=== PATIENT | male | born 1945 | race Caucasian/White ===

== ENCOUNTER 2016-11-26 10:22 | Inpatient (IN) | payer OTHER ==
--- NOTE | 2016-11-26 10:34 | EDPHY ---
H & P Time Seen by Provider: 11/26/16 10:33 HPI/ROS: CHIEF COMPLAINT: Trouble with speech HISTORY OF PRESENT ILLNESS: Patient arrives brought in by his boom operator. Apparently he was awake early today and had a telephone conversation at 8:00 a.m. which she knows is voice was normal. His partner noticed that he was having trouble speaking at 9:15 a.m. and he was brought to the emergency department. The patient says he is having trouble thinking of what to say and also getting the words out. He says he is not sure what time the symptoms started but definitely were not present at 8:00 a.m.. Not associated with headache or double vision. No weakness or numbness in extremities. No difficulty walking or vertigo or ataxia. REVIEW OF SYSTEMS: Eye: no change in vision ENT: no sore throat Cardiac: no chest pain or syncope Pulmonary: no cough or SOB Abdomen: no vomiting, diarrhea, abdominal pain Musculoskeletal: no back pain Skin: no rash Neuro: no headache Constitutional: no fever : no urinary symptoms A comprehensive 10 point review of systems is otherwise negative aside from elements mentioned in the history of present illness. PAST MEDICAL HISTORY: Hypertension, history of dysphonia. Social history: Here with his girlfriend. Nonsmoker. Occasional alcohol. General Appearance: Alert and conversant, cooperative. Eyes: No scleral icterus. No tongue laceration or abrasion. ENT, Mouth: Normal mucous membranes. Respiratory: Normal respiratory effort, breath sounds equal, lungs are clear to auscultation. Cardiovascular: Regular rate and rhythm. Gastrointestinal: Abdomen is soft and non tender. Neurological: Alert and oriented x3. Speech is halting and somewhat slurred. Right facial droop, otherwise normal movement and sensation in extremities. Skin: Warm and dry, no rashes. Musculoskeletal: No peripheral edema and no joint swelling. Psychiatric: Not agitated. Emergency Department course/MDM: Patient was immediately made a stroke activation. 1047: Returns from CT and [facility] is examining the patient. Dr. Ferraro via telemedicine. 1051: Negative noncontrast head CT per Stacey. 1052: Decision to administer IV Activase at the recommendation of the tax credit leasing consultant neurologist from [facility]. Risk benefit and alternatives discussed with the patient by neurologist via telemedicine and consented. Treatment started less than 3 hours after last known normal of 8:00 a.m. Blood pressure 177/85 at this time. Patient receives NIH points for language, dysarthria, and facial droop on the right. Re-examined 1118. Angiography results discussed. No headache. Activase is infused. Smoking Status: Never smoked Constitutional: Initial Vital Signs Temperature (C) 36.4 C 11/26/16 10:26 Heart Rate 66 11/26/16 10:26 Respiratory Rate 16 11/26/16 10:26 Blood Pressure 167/111 H 11/26/16 10:26 O2 Sat (%) 98 11/26/16 10:26 O2 Delivery Mode Room Air O2 (L/minute) 2 Allergies/Adverse Reactions: No Known Allergies Allergy (Unverified 11/26/16 10:26) Home Medications: Medication Instructions Recorded Chlorthalidone [Chlorthalidone 25 25 mg PO DAILY 11/26/16 mg (*)] Naproxen Sodium [Aleve 220 MG (*)] 220 mg PO BID PRN 11/26/16 Medical Decision Making - Diagnostics EKG Interpretation: 12-lead EKG interpreted by me; official reading is in trace master. My interpretation is sinus rhythm with left axis and late anterior RS transition Imaging Results: Imaging Impressions Head CT 11/26/16 10:34 Impression: 1. No acute intracranial findings. 2. Diffuse cerebral atrophy with periventricular and subcortical low attenuation consistent with chronic microvascular ischemic gliosis. Findings discussed with JOHN JAVIER 11/26/2016 at 1049. Chest X-Ray 11/26/16 10:40 Impression: Possible mild cardiomegaly. Consider obtaining a routine PA and lateral chest, the patient is clinically able. Head CTA 11/26/16 10:56 Impression: 1. No acute vascular findings. 2. 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 3. Degenerative change in the cervical spine. 4. Additional findings as above. Stenoses are calculated using [place] Symptomatic Carotid Endarterectomy Trial (NASCET) criteria. Neck CTA 11/26/16 10:56 Impression: 1. No acute vascular findings. 2. 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 3. Degenerative change in the cervical spine. 4. Additional findings as above. Stenoses are calculated using [place] Symptomatic Carotid Endarterectomy Trial (NASCET) criteria. Differential Diagnosis: Differential considered including but not limited to ischemic stroke, intracranial mass, intracranial bleed, Perez's palsy. Consult/Admit Bed Type: [facility] 1042, [facility] for Clement 1058 Critical Care Time: Critical care time spent by me, Dr. Javier, exclusively with the care of this patient was 45 minutes, exclusive of PA or ELECTRONIC COMMUNICATIONS TECHNICIAN time and exclusive of separate procedures. The organ system at risk was neurologic and I ordered intravenous Activase, consultation with hospitalist and [facility]; to stabilize the patient and prevent worsening of the patient's condition. - Data Points Laboratory Results: Laboratory Results 11/26/16 10:37 11/26/16 10:37 11/26/16 11/26/16 11/26/16 10:37 10:37 10:37 WBC 5.02 10^3/uL 10^3/uL (3.80-9.50) RBC 5.74 10^6/uL 10^6/uL (4.40-6.38) Hgb 17.5 g/dL g/dL (13.7-17.5) POC Hgb Hct 51.5 % H % (40.0-51.0) POC Hct MCV 89.7 fL fL (81.5-99.8) MCH 30.5 pg pg (27.9-34.1) MCHC 34.0 g/dL g/dL (32.4-36.7) RDW 13.8 % % (11.5-15.2) Plt Count 187 10^3/uL 10^3/uL (150-400) MPV 9.8 fL fL (8.7-11.7) Neut % (Auto) 41.0 % % (39.3-74.2) Lymph % (Auto) 41.0 % % (15.0-45.0) Willacy % (Auto) 10.6 % % (4.5-13.0) Eos % (Auto) 6.0 % % (0.6-7.6) Baso % (Auto) 1.2 % % (0.3-1.7) Nucleat RBC Rel Count 0.0 % % (0.0-0.2) Absolute Neuts (auto) 2.06 10^3/uL 10^3/uL (1.70-6.50) Absolute Lymphs (auto) 2.06 10^3/uL 10^3/uL (1.00-3.00) Absolute Monos (auto) 0.53 10^3/uL 10^3/uL (0.30-0.80) Absolute Eos (auto) 0.30 10^3/uL 10^3/uL (0.03-0.40) Absolute Basos (auto) 0.06 10^3/uL 10^3/uL (0.02-0.10) Absolute Nucleated RBC 0.00 10^3/uL 10^3/uL (0-0.01) Immature Gran % 0.2 % % (0.0-1.1) Immature Gran # 0.01 10^3/uL 10^3/uL (0.00-0.10) PT 12.8 SEC SEC (12.0-15.0) INR 0.97 (0.83-1.16) POC Sodium Sodium 142 mEq/L mEq/L (134-144) POC Potassium Potassium 4.0 mEq/L mEq/L (3.5-5.2) POC Chloride Chloride 104 mEq/L mEq/L (97-110) Carbon Dioxide 27 mEq/l mEq/l (22-31) Anion Gap 11 mEq/L mEq/L (8-16) POC BUN BUN 25 mg/dL H mg/dL (7-23) Creatinine 1.3 mg/dL mg/dL (0.7-1.3) POC Creatinine Estimated GFR 55 Glucose 93 mg/dL mg/dL (70-100) POC Glucose Calcium 9.3 mg/dL mg/dL (8.5-10.4) Troponin I < 0.012 ng/mL ng/mL (0-0.034) 11/26/16 10:34 WBC RBC Hgb POC Hgb 18.0 gm/dL H gm/dL (13.7-17.5) Hct POC Hct 53 % H % (40-51) MCV MCH MCHC RDW Plt Count MPV Neut % (Auto) Lymph % (Auto) Willacy % (Auto) Eos % (Auto) Baso % (Auto) Nucleat RBC Rel Count Absolute Neuts (auto) Absolute Lymphs (auto) Absolute Monos (auto) Absolute Eos (auto) Absolute Basos (auto) Absolute Nucleated RBC Immature Gran % Immature Gran # PT INR POC Sodium 144 mEq/L mEq/L (134-144) Sodium POC Potassium 3.6 mEq/L mEq/L (3.3-5.0) Potassium POC Chloride 102 mEq/L mEq/L (97-110) Chloride Carbon Dioxide Anion Gap POC BUN 26 mg/dL H mg/dL (7-23) BUN Creatinine POC Creatinine 1.4 mg/dL H mg/dL (0.7-1.3) Estimated GFR Glucose POC Glucose 97 mg/dL mg/dL (70-100) Calcium Troponin I Medications Given: Discontinued Medications Alteplase, Recombinant (Activase) 6.525 mg 0.09 mg/kg (6.525 mg) IV ONCE ONE PRN Reason: Protocol Stop: 11/26/16 11:39 Last Admin: 11/26/16 10:52 Dose: 6.525 mg Alteplase, Recombinant (Activase) 58.725 mg 0.81 mg/kg (58.725 mg) IV ONCE ONE PRN Reason: Protocol Stop: 11/26/16 11:39 Last Admin: 11/26/16 10:55 Dose: 58.725 mg Sodium Chloride (Ns) 50 mls @ 0 mls/hr IV EDNOW ONE PRN Reason: Per Protocol Stop: 11/26/16 11:39 Last Admin: 11/26/16 11:46 Dose: 50 mls Point of Care Test Results: 11/26/16 10:34 POC Sodium 144 POC Potassium 3.6 POC Chloride 102 POC BUN 26 H POC Creatinine 1.4 H POC Glucose 97 Departure - Departure Disposition: [facility] Inpatient Acute Clinical Impression: Acute ischemic stroke Condition: Serious
[2016-11-26] MEDS ORDERED: ALTEPLASE 100 MG/100 ML VIAL IV ONE ×2 (10:38→11:38)
[2016-11-26] MEDS ORDERED: NS 50 ML BAG IV ONE (10:50)
[2016-11-26 10:54] LABS: % IMMATURE GRANULYOCYTES 0.2 % (0.0-1.1); ABSOLUTE IMMATURE GRANULOCYTES 0.01 10^3/uL (0.00-0.10); ADD DIFF? NO; ADD MORPH? NO; ADD SCAN? NO; ATYPICAL LYMPHOCYTE FLAG 10 (0-99); FRAGMENT RBC FLAG 0 (0-99); HEMATOCRIT 51.5 % (40.0-51.0); HEMOGLOBIN 17.5 g/dL (13.7-17.5); LEFT SHIFT FLG 0 (0-99); LIPEMIA HEMOLYSIS FLAG 90 (0-99); MEAN CELL HEMOGLOBIN 30.5 pg (27.9-34.1); MEAN CELL VOLUME 89.7 fL (81.5-99.8); MEAN PLATELET VOLUME 9.8 fL (8.7-11.7); PLATELET CLUMPS FLAG 10 (0-99); PLATELET COUNT 187 10^3/uL (150-400); RED BLOOD CELL COUNT 5.74 10^6/uL (4.40-6.38); RED CELL DISTRIBUTION WIDTH 13.8 % (11.5-15.2)
[2016-11-26] MEDS ORDERED: IOPAMIDOL (ISOVUE 370) 100 ML BTL IV ONE (10:57)
--- NOTE | 2016-11-26 11:03 | CPEKG ---
Heart Rate: 71 RR Interval: 845 P-R Interval: 184 QRSD Interval: 104 QT Interval: 424 QTC Interval: 461 P Hiland: 68 QRS Hiland: -21 T Wave Hiland: 39 EKG Severity - ABNORMAL ECG - EKG Impression: SINUS RHYTHM EKG Impression: BORDERLINE LEFT AXIS DEVIATION EKG Impression: ABNRM R PROG, CONSIDER ASMI OR LEAD PLACEMENT Electronically Signed By: Christiano Wall 26-Nov-2016 11:24:41
[2016-11-26 11:33] LABS: ANION GAP 11 mEq/L (8-16); CALCIUM 9.3 mg/dL (8.5-10.4); CARBON DIOXIDE 27 mEq/l (22-31); CHLORIDE 104 mEq/L (97-110); CREATININE 1.3 mg/dL (0.7-1.3); GLOMERULAR FILTRATION RATE 55; GLUCOSE 93 mg/dL (70-100); SODIUM 142 mEq/L (134-144)
[2016-11-26] MEDS ORDERED: NS 50 ML IV ONE (11:38)
[2016-11-26] MEDS ORDERED: ALTEPLASE 1 MG/ML SYR IV ONE (11:38)
[2016-11-26 11:45] LABS: TROPONIN I < 0.012 ng/mL (0-0.034)
[2016-11-26] MEDS ORDERED: ONDANSETRON 4 MG/2 ML VIAL IVP PRN (12:52)
[2016-11-26] MEDS ORDERED: ACETAMINOPHEN 325 MG TAB PO PRN (12:52)
[2016-11-26] MEDS ORDERED: ONDANSETRON DISINTEGRATING 4 MG TAB PO PRN (12:52)
[2016-11-26 13:27] LABS: INR 0.97 (0.83-1.16); PROTIME(PATIENT) 12.8 SEC (12.0-15.0)
--- NOTE | 2016-11-26 14:09 | GHP ---
[f rep st] HISTORY AND PHYSICAL DATE OF ADMISSION: 11/26/2016 HISTORY OF PRESENT ILLNESS: The patient is a pleasant 71-year-old gentleman, with history of hypert ension and dysphonia, who presents today with sudden onset aphasia. It sounds like he was trying to speak and think of the words but he just could not get them out, he was making noise. It sounds li ke he had a phone call around 8 o'clock, that was the last he is remembered normal and his partner s aw him a little bit thereafter. Presented to the emergency department and received IV tPA at 2 hour s and 55 minutes approximately since the onset of symptoms. Currently, when I speak with him he is able to converse. He is able to name objects and speak. He is not complaining of any numbness or w eakness anywhere. Does not have a headache. Regarding stroke risk factors, he has high blood pressure for which he takes chlorthalidone. He den ies cigarette use. He does not have a history of hyperlipidemia or diabetes of which he knows. The re is a family history of vascular disease. His girlfriend is present at the bedside, and she belie ves his speech is essentially back to normal. He sometimes has dysarthria type symptoms when he get s Botox injections for his dysphonia, though he has had no recent Botox injections and these symptom s are different than what he has had in the past. REVIEW OF SYSTEMS: Complete 10-point review of systems conducted, and negative except as noted in t he HPI. PAST MEDICAL HISTORY: Hypertension, dysphonia. ALLERGIES: No known drug allergies. MEDICATIONS: Chlorthalidone and naproxen. SOCIAL HISTORY: Is retired from [employer]. Lives in [place] with his girlfriend. Occasional alcoho l, no tobacco. PHYSICAL EXAM: VITAL SIGNS: Temp 36.7, blood pressure 168/94, pulse 73, breathing 18 times a minut e, 100% on 2 L. GENERAL: No acute distress. HEENT: Sclerae anicteric. Oropharynx clear. Mucous membranes moist. NECK: Supple. No lymphadenopathy or JVD. LUNGS: Clear to auscultation bilater ally. HEART: S1, S2 without murmurs. ABDOMEN: Soft, nontender, nondistended. LOWER EXTREMITIES: No edema. Calves nontender. SKIN: Without rash. NEUROLOGIC: Shows upper extremity strength an d lower extremity strength 5/5 bilaterally. Sensation in his upper and lower extremities is 5/5 howie aterally. He has no facial droop. Cranial nerves 2-12 are intact. Speech is fluent. He is able t o name objects and follow commands. Cerebellar testing was symmetric, slightly slow bilaterally. IMAGING: EKG interpreted by id, shows sinus at 71 with borderline left axis deviation, normal inter vals, no ST or T-wave changes. There is no prior for comparison. A chest x-ray interpreted by me, shows no acute cardiopulmonary disease, normal heart size. Noncontrast head CT, shows no acute intr acranial findings, diffuse cerebral atrophy with periventricular and subcortical low attenuation con sistent with chronic microvascular ischemic gliosis. 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 It seems like there is no significant evidence of flow limiting stenoses. I have discussed the case with Dr. Mikhail Vallecillo as well as Dr. Montez Saldaña. ASSESSMENT/PLAN: This is a 71-year-old male who presents with dysarthria, concerning for acute cere brovascular accident, now status post lytics. 1. Status post lytics. The patient's blood pressure is 140/80 without medication. We will continu e his chlorthalidone p.r.n. as would be available. His goal blood pressure is less than 140. 2. Cerebrovascular accident. This is likely a cerebrovascular accident versus transient ischemic a ttack with classic symptoms of dysarthria. I have ordered an echocardiogram, A1c, lipid panel. I w ill follow him on telemetry for occult atrial fibrillation. The patient warrants an aspirin therapy that will start tomorrow. 3. Hypertension. Continue his chlorthalidone. 4. Dysphonia. Will follow. Speech will see him. 5. Prophylaxis. Pharmacologic prophylaxis indicated. We will start with SCDs today given that he has received IV tPA. ADMISSION STATUS: Inpatient. /[id number]/MODL
--- NOTE | 2016-11-26 14:29 | GCON ---
[f rep st] CONSULTATION NEUROLOGY CONSULTATION REFERRING PHYSICIAN: Jairo Vaughan MD HISTORY: The patient is a 71-year-old gentleman whom I am asked to see in neurologic consultation for a chief complaint of trouble with verbal expression. The patient was at home when he developed the acute onset of inability to express himself around 10 a.m. He came to the emergency room as an acute stroke alert and was assessed as having some impaired speech and possible facial droop on the right and received IV tPA within 30 minutes. Language has probably gone back to about baseline or at least 90%, confirmed by his . He specifically said he knew what he wanted to say, but the words just would not come out. He just made sounds and grunts rather than a slurring of speech. 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 He has received Botox treatments before, with his last treatment about 4 months ago. He has never had a history of stroke or TIA. After receiving the treatment in the emergency department, he has been transferred to the ICU for monitoring. He had a head CT showing evidence of microvascular disease, but nothing else more specific. CT angiogram of the head and neck did not show any significant stenoses. PAST MEDICAL HISTORY: Predominantly as outlined above. There is a history of mild hypertension and the essential tremor. HABITS: He has very light alcohol use. No substance abuse. No smoking history. MEDICATIONS: Medication prior to admission was chlorthalidone. ALLERGIES: No known drug allergies. REVIEW OF SYSTEMS: Unremarkable, except for that noted above. PHYSICAL EXAMINATION: VITAL SIGNS: Blood pressure is 147/81, pulse of 65, respirations 10, temperature 36.7. GENERAL: He is well developed, in no acute distress. EYES: Clear. CARDIAC: Regular rate and rhythm. No murmur. No carotid bruits. NEUROLOGIC: NIH stroke scale of 1. He is awake, alert and attentive, with mild dysphonic speech related to spasmodic dysphonia, but he is not having expressive language problems currently at least by the evaluation through our discussions. He is oriented fully. He has mild right lower facial weakness. Motor exam: Normal muscle bulk and tone, 5/5 strength with just mild tremulousness on [id number]. Sensation preserved. Reflexes 1+. IMPRESSION: The patient has experienced a probable acute ischemic stroke in the left middle cerebral artery territory. Whether it is a local thrombosis or an embolic phenomenon is not clear yet. There were no clear-cut lesions in the CT angiogram of the head and neck. We will have echocardiogram obtained. He will stay in the ICU for 24 hours and monitor it with a head CT in approximately 24 hours, and then plan antiplatelet therapy and consideration of statin therapy as well. Physical, occupational, and speech therapy consult will be obtained. Total unit time: 55 minutes. /[id number]/MODL MTDD
[2016-11-27 05:39] LABS: % IMMATURE GRANULYOCYTES 0.2 % (0.0-1.1); ABSOLUTE IMMATURE GRANULOCYTES 0.01 10^3/uL (0.00-0.10); ADD DIFF? NO; ADD MORPH? NO; ADD SCAN? NO; ATYPICAL LYMPHOCYTE FLAG 10 (0-99); FRAGMENT RBC FLAG 0 (0-99); HEMATOCRIT 48.8 % (40.0-51.0); HEMOGLOBIN 16.8 g/dL (13.7-17.5); LEFT SHIFT FLG 0 (0-99); LIPEMIA HEMOLYSIS FLAG 90 (0-99); MEAN CELL HEMOGLOBIN 30.6 pg (27.9-34.1); MEAN CELL HEMOGLOBIN CONCENTR. 34.4 g/dL (32.4-36.7); MEAN CELL VOLUME 88.9 fL (81.5-99.8); MEAN PLATELET VOLUME 10.3 fL (8.7-11.7); PLATELET CLUMPS FLAG 10 (0-99); PLATELET COUNT 173 10^3/uL (150-400); RED BLOOD CELL COUNT 5.49 10^6/uL (4.40-6.38); RED CELL DISTRIBUTION WIDTH 13.6 % (11.5-15.2)
[2016-11-27 05:47] LABS: INR 1.09 (0.83-1.16)
[2016-11-27 05:56] LABS: CHOLESTEROL 181 mg/dL (140-220); CHOLESTEROL/HDL RATIO 3.62 RATIO (1.00-4.97); HIGH DENSITY LIPOPROTEIN 50 mg/dL (40-65); LDL/HDL RATIO 2.28 RATIO (1.00-3.64); LOW DENSITY LIPOPROTEIN 114 mg/dL (80-100); NON-HIGH DENSITY LIPOPROTEIN 131 mg/dL (90-129); TRIGLYCERIDE 86 mg/dL (40-150); VERY LOW DENSITY LIPOPROTEINS 17 mg/dL (8-25)
--- NOTE | 2016-11-27 08:34 | NEUROPROG ---
Assessment: Total unit time today of 25 minutes. The patient has experienced a small stroke or TIA and received tPA with resolution of deficits. Echocardiogram is pending. He will start on aspirin if the head CT shows no hemorrhage 24 hours after the infusion and should be able to be discharged today if cleared by therapy. I would recommend he start statin therapy for secondary stroke prophylaxis in addition to the daily aspirin. He would then follow up with me as an outpatient in approximately 1 month as well as with his primary care doctor. Subjective: The patient is reporting that he feels back to his baseline now. No recurrence of symptoms and no new complaints since admission. It has been approximately 22 hours since receiving tPA. Objective: Vital Signs Temp Pulse Resp BP Pulse Ox 36.5 C 70 16 120/77 94 11/27/16 08:00 11/27/16 08:00 11/27/16 08:00 11/27/16 08:00 11/27/16 08:00 Laboratory Results 11/27/16 01:20 11/26/16 11/27/16 11/28/16 05:59 05:59 05:59 Intake Total 750 Balance 750 PT 14.0 SEC (12.0-15.0) 11/27/16 01:20 INR 1.09 (0.83-1.16) 11/27/16 01:20 Alert and attentive with NIH stroke scale of 0 now. The LDL cholesterol is 113. Allergies/Adverse Reactions: No Known Allergies Allergy (Unverified 11/26/16 10:26)
[2016-11-27] MEDS ORDERED: ASPIRIN 81 MG CHEWABLE TAB PO SCH ×2 (09:00→12:00)
[2016-11-27] MEDS ORDERED: CHLORTHALIDONE 25 MG TAB PO SCH (09:00)
[2016-11-27] MEDS ORDERED: ATORVASTATIN CALCIUM 40 MG TAB PO SCH (09:00)
[2016-11-27 09:48] LABS: HEMOGLOBIN A1C 5.3 % (4.0-6.0)
[2016-11-27 12:11] VITALS: TEMP 98.4
--- NOTE | 2016-11-27 14:12 | ECHO ---
[id number] + + [address] : : [place] [address] : : [phone] + Adult Echocardiographic Report + ------+ :Name: JULIET BERNSTEIN RStudy Date: 11/26/2016 01:55 PM : : Hospital Admission Number: [id number] Locatio n: 254: :: 1945 Gender: Male Height: 69 in : :Age: 71 yrs Race: WH Weight: 159 lb : :Reason For Study: Eval LV Fx : : BSA: 1.9 meters 2 : :History: CVA : + ------+ MMode/2D Measurements \T\ Calculations IVSd: 0.87 cm LVIDd: 4.0 cm FS: 38.6 % Ao root diam: 3.3 cm LVPWd: 0.98 cm LVIDs: 2.5 cm EDV(Teich): 71.2 ml ACS: 1.7 cm ESV(Teich): 21.7 ml EF(Teich): 69.5 % Normal Measurement Values: + + :LVIDd (3.5-5.7cm) IVSd (0.6-1.1cm) LVPWd (0.6-1.1cm) Aortic Root (2.0-3.7cm)Left Atrium (1.5-4.0cm): :LV Vol(d) (76-115ml) LV Vol(s) (29-48ml) Ejec Fraction (50-65%)PV Trevor (0.6- 1.2m/s) TV Trevor (0.4-1.0m/s) : :MV E Trevor (0.8-1.0m/s)MV A Trevor (0.3-1.0m/s)LVOT Trevor (0.7-1.2m/s) Asc Ao Trevor ( 0.9-1.8m/s) : + + Doppler Measurements \T\ Calculations MV E max trevor: Ao V2 max: LV V1 max: PA V2 max: 51.3 cm/sec 124.9 cm/sec 78.5 cm/sec 80.1 cm/sec MV A max trevor: Ao max P.2 mmHg LV V1 max PG: PA max P.2 cm/sec 2.5 mmHg 2.6 mmHg MV E/A: 0.80 Left Ventricle The left ventricle is normal in size. There is normal left ventricular wall thickness. The left ventricular ejection fraction is normal. There is Doppler evidence for diastolic dysfunction. Ejection Fraction = 70%. The left ventricular wall motion is normal. Right Ventricle The right ventricle is normal in size and function. Atria The left atrial size is normal. Right atrial size is normal. Mitral Valve The mitral valve is normal in structure and function. There is no mitral regurgitation noted. Tricuspid Valve Normal tricuspid valve. No tricuspid regurgitation. Aortic Valve The aortic valve is normal in structure and function. The aortic valve is trileaflet. There is no aortic stenosis. There is no aortic insufficiency. Pulmonic Valve The pulmonic valve is not well visualized. There is no pulmonic valvular regurgitation. Great Vessels The aortic root is normal size. Pericardium/Pleural There is no pericardial effusion. There is a fat pad seen. Conclusion A complete two-dimensional transthoracic echocardiogram was performed (2D, M-mode, Doppler and color flow Doppler). (1) Left ventricular systolic ejection fraction was normal (70%) - normal wall motion (2) No left ventricular hypertrophy (3) Diastolic dysfunction was present (4) Normal right ventricular size and function (5) Normal atrial dimensions (6) Grossly normal mitral valve (7) Trileaflet aortic valve without sclerosis or appreciable insufficiency (8) Grossly normal tricuspid valve (9) Poor visualization of the pulmonic valve (10) No comparison echocardiograms Final Reading Physician: Jeannine Camacho signed on 11/27/2016 02:11 PM Ordering Physician: Jairo Vaughan Performed By: Agus Healy, CS
[2016-11-27 14:39] VITALS: BP 123/70; PULSE 71; RESP 16; O2SAT 94
--- NOTE | 2016-11-27 15:48 | GDS ---
[f rep st] DISCHARGE SUMMARY DISCHARGE DIAGNOSES: 1. Cerebrovascular accident, status post lytics. 2. Hypertension. 3. Spasmodic dysphonia. CONSULTANTS: Montez Saldaña MD, Neurology. IMAGING STUDIES/PROCEDURES: 1. Head CT, November 26, 2016, showed no acute intracranial findings. There was diffuse cerebral atroph y with periventricular and subcortical low attenuation consistent with chronic microvascular ischemi c gliosis. 2. Head and neck CT angiography showed no acute vascular findings, a probable venous anomaly in the left temporal lobe. No evidence of large vessel occlusions. 3. Repeat head CT, November 27, 2016 status post lytics, was again negative for acute intracranial hemor rhage or evolving cortical ischemia. 4. Echocardiogram November 26, 2016, showed normal left ventricular ejection fraction of 70% with normal wall motion. Diastolic dysfunction was present. No significant valve disease. HISTORY: For details please see the history and physical dated November 26, 2016. In brief, the patient was a 71-year-old male with a history of hypertension and dysphonia who presents to the emergency d [facility] with sudden onset aphasia. He was treated with lytic therapy and admitted to the intensiv e care unit for further management. HOSPITAL COURSE: Upon arrival to the emergency department with acute neuro deficits, [facility] was consulted and lytic therapy was recommended in the setting of dysarthria and right facial d gemma. His symptoms have completely resolved 24 hour post lytics. Repeat head CT is negative for he morrhage. There has been no ongoing evidence of ischemia. Neurology consult was obtained. He was started on aspirin after confirmation of a normal head CT 24 hours post lytics. Statin therapy was also initiated. It is likely he had an acute ischemic stroke in the left MCA distribution based on his presenting symptoms of aphasia and right-sided facial droop. There is no evidence of a cardioem bolic source. His bilateral carotid arteries and vertebral arteries were widely patent on CT angiog frida. He did well with physical therapy and Neurology felt he was stable for discharge home today. I recommended he have an outpatient 30-day cardiac event monitor to continue to look for atrial fibr illation as a source of embolic CVA. DISPOSITION: Patient is discharged home in stable condition. FOLLOWUP: 1. Dr. Clements, primary care. 2. Dr. João Brown [facility]. The patient is advised [facility] will contact him to set up a 30-day cardiac event monitor. DISCHARGE MEDICATIONS: 1. Aspirin 81 mg p.o. daily #30, no refills. 2. Atorvastatin 40 mg p.o. daily #30, no refills. /[id number]/MODL
== END 2016-11-27 15:17 | disposition home or self-care (01) | DRG 63 ==
LOC: F2N 12:09
PROVIDERS: ADMIT Internal Medicine; ATTEND Internal Medicine
DX: I63.519 Cerebral infarction due to unspecified occlusion or stenosis of unspecified middle cerebral artery (principal); J38.3 Other diseases of vocal cords; I10 Essential (primary) hypertension
CPT/HCPCS: 82947-QW; 92523-GN; 92610-GN; 97161-GP; G8978-GP-CH; G8979-GP-CH; G8980-GP-CH; G8996-GN-CH; G8997-GN-CH; G9162-GN-CH; G9163-GN-CH; G9164-GN-CH; J2997; Q9967

== ENCOUNTER → 2017-06-19 | Outpatient (CLI) | payer OTHER ==
[~2017-06-19] MED LIST: GADOBUTROL 10 ML VIAL IVP ONE
== END ==
LOC: FIMAGING 16:08
PROVIDERS: ATTEND Physician Assistant
DX: R93.0 Abnormal findings on diagnostic imaging of skull and head, not elsewhere classified (principal); G94 Other disorders of brain in diseases classified elsewhere
CPT/HCPCS: 70553; A9585

== ENCOUNTER 2017-09-06 07:33 | Day surgery (SDC) | payer OTHER ==
[2017-09-06] MEDS ORDERED: LIDOCAINE 1% 300 MG/30 ML SDV SC ONE (07:37)
--- NOTE | 2017-09-06 08:41 | PDGENHP ---
History & Physical Chief Complaint: Cryptogenic stroke History of Present Illness: Patient is a 72 y/o male with HTN and cryptogenic stroke without arrhythmias noted on cardionet monitor. No new complaints have been voiced. No cardiovascular complaints today. Pertinent Past, Social, Family History: [place] history to the family. Non smoker. Social drinker. No illicits Relevant Physical Exam: Normal sinus rhythm. Clear lung sounds. No edema Cardiorespiratory Assessment: RRR without m/r/g. Normal S1S2 no S3. Lungs CTA bilaterally. No LE edema.
--- NOTE | 2017-09-06 09:00 | SUROPNOTE ---
[facility] Operative Report - Surgery After consent for the procedure was signed, the patient was prepped and draped in the usual sterile fashion. Lidocaine was injected into the left para sternal region at the level of 2nd and 3rd ICS. A small incision was made with #12 blade and the provided blade was then used to make proper width and breath. The delivery rail with device was inserted into the incision without difficulty. The device was then deployed without difficulty. [employer] SN: [id number] Four vonnie were used to close the incision. No sedation provided. Patient to be seen in the outpatient setting in 5-7 days for wound check and staple removal. No complications
== END 2017-09-06 09:11 | disposition home or self-care (01) ==
LOC: FCATH 07:33
PROVIDERS: ATTEND Internal Medicine Cardiovascular Disease
PROC: 0JH602Z Insertion of Monitoring Device into Chest Subcutaneous Tissue and Fascia, Open Approach (ICD-10-PCS; principal; 2017-09-06)
DX: I63.9 Cerebral infarction, unspecified (principal); I10 Essential (primary) hypertension; G25.0 Essential tremor; I25.2 Old myocardial infarction
CPT/HCPCS: C1764